=== PATIENT | female | born 1955 | race Caucasian/White ===

== ENCOUNTER → 2019-07-28 | Outpatient (CLI) | payer BC ==
--- NOTE | 2019-07-29 04:19 | BD ---
EXAMINATION TYPE: Axial Bone Density DATE OF EXAM: 07/28/2019 COMPARISON: 01/28/2013 CLINICAL HISTORY: 64-year-old female postmenopausal screening Height: 62.7 IN Weight: 136 LBS FRAX RISK QUESTIONS: Secondary Osteoporosis: 3. Menopause before 45: PARTIAL HYST AGE 43 RISK FACTORS HISTORY OF: Active: YES Diet low in dairy products/other sources of calcium: YES Postmenopausal woman: AGE 43 PARTIAL HYST MEDICATIONS: Additional Medications: ALEVE, SINUS MED, SUDAFED, TYLENOL PM EXAM MEASUREMENTS: Bone mineral densitometry was performed using the [employer] System. Bone mineral density as measured about the Lumbar spine is: ----- L1-L4(G/cm2): 0.957 T Score Values are as follows: ----- L2: -2.0 ----- L3: -1.9 ----- L4: -1.5 ----- L1-L4: -1.9 Bone mineral density has: Decreased -4.1% since study of: 01/28/2013 Bone mineral density about the R hip (g/cm2): 0.887 Bone mineral density about the L hip (g/cm2): 0.803 T Score values are as follows: -----R Neck: -1.1 -----L Neck: -1.7 -----R Total: -1.1 -----L Total: -1.3 Bone mineral density has: Decreased -3.8% since study of: 01/28/2013 IMPRESSION: Osteopenia (T Score between -2.5 and -1). There is slightly increased risk of fracture and the patient may be considered for treatment. Re-Screen 2-5 years. NOTE: T-SCORE=SD OF THE YOUNG ADULT MEAN.
--- NOTE | 2019-07-29 11:28 | MM ---
Reason for exam: screening (asymptomatic). Last mammogram was performed 5 years and 3 months ago. History: Patient is postmenopausal. Taking estrogen for 1 month beginning at age 50. Physical Findings: A clinical breast exam by your physician is recommended on an annual basis and results should be correlated with mammographic findings. MG Screening Mammo w CAD Bilateral CC and MLO view(s) were taken. Prior study comparison: April 14, 2014, bilateral MG screening mammo w CAD. January 28, 2013, bilateral digital screening mammo w/CAD. The breast tissue is heterogeneously dense. This may lower the sensitivity of mammography. Stable benign calcifications. There is no discrete abnormality. No significant changes when compared with prior studies. ASSESSMENT: Benign, BI-RAD 2 RECOMMENDATION: Routine screening mammogram of both breasts in 1 year.
== END | disposition home or self-care (01) ==
LOC: RADMAMWWP 14:34
PROVIDERS: ATTEND Obstetrics & Gynecology
DX: Z12.31 Encounter for screening mammogram for malignant neoplasm of breast (principal); M85.80 Other specified disorders of bone density and structure, unspecified site; Z78.0 Asymptomatic menopausal state
CPT/HCPCS: 77067; 77080

== ENCOUNTER → 2020-03-12 | Outpatient (CLI) | payer BC ==
--- NOTE | 2020-03-12 15:19 | MR ---
EXAMINATION TYPE: MR lumbar spine wo con DATE OF EXAM: 03/12/2020 COMPARISON: None HISTORY: 64-year-old female Low back pain radiating to R leg TECHNIQUE: Multiplanar, multisequence images of the lumbar spine were acquired. FINDINGS: Vertebral body heights are preserved. Hypertrophic facet arthropathy with grade 1 retrolisthesis at L2-L3. Moderate degenerative disc disease throughout. Mixed Modic endplate changes are present at L2-L3 and L5-S1. Desiccated, narrowed, and bulging discs are present throughout. Scattered ligament of flavum thickening. Fatty matrix and angioma within the L2 vertebral body. Mild heterogeneous marrow signal without suspi cious bone marrow placement. Suspect represent marrow hyperplasia. Conus medullaris is normal. At T12-L1, no spinal canal or foraminal stenosis. L1-L2, bulging disc with ligamentum flavum thickening. Minimal narrowing of the spinal canal without neural foraminal stenosis. At L2-L3, facet arthropathy with diffuse disc bulge and grade 1 retrolisthesis. There is mild overall narrowing of the spinal canal with mild bilateral neuroforaminal stenosis, left greater than right. At L3-L4, diffuse disc bulge with facet arthropathy and ligamentous thickening. There is ventral impr ession on the thecal sac without spinal canal stenosis. Mild right neuroforaminal stenosis. At L4-L5, diffuse disc bulge with facet arthropathy and ligamentum flavum thickening. No spinal canal stenosis. Mild bilateral neuroforaminal stenosis. At L5-S1, diffuse disc bulge with facet arthropathy. No spinal canal stenosis. Disc material may oneal ge the traversing left S1 nerve root and may contact the traversing right S1 nerve root. Mild bilater al neuroforaminal stenosis. T2 hyperintense lesions within the right liver lobe and also caudate lobe near the IVC measure at gelacio st 2.1 cm and 2.3 cm, respectively. IMPRESSION: 1. Moderate multilevel degenerative disc disease. Scattered facet arthropathy. Degenerative grade 1 r etrolisthesis of L2-L3. 2. Mild narrowing of the spinal canal at L1-L2 and L2-L3. No arianne canal compromise. 3. Disc material at L5-S1 may impinge the traversing left S1 nerve root and may contact the traversin g right S1 nerve root. 4. Variable mild bilateral neural foraminal stenosis as outlined above. 5. A couple T2 hyperintense hepatic lesions. Cysts or hemangiomas are favored. Recommend liver ultras ound to exclude suspicious solid masses.
== END | disposition home or self-care (01) ==
LOC: RADMRIMAIN 12:35
PROVIDERS: ATTEND Internal Medicine
DX: M47.816 Spondylosis without myelopathy or radiculopathy, lumbar region (principal); M43.16 Spondylolisthesis, lumbar region; M51.36 Other intervertebral disc degeneration, lumbar region; M48.061 Spinal stenosis, lumbar region without neurogenic claudication
CPT/HCPCS: 72148

== ENCOUNTER → 2020-04-08 | Outpatient (CLI) | payer BC ==
--- NOTE | 2020-04-08 09:31 | US ---
EXAMINATION TYPE: US liver DATE OF EXAM: 04/08/2020 COMPARISON: MRI lumbar spine 03/12/2020 CLINICAL HISTORY: R68.89 Abn MRI finding. EXAM MEASUREMENTS: Liver Length: 11.3 cm Gallbladder Wall: 0.2 cm CBD: 0.4 cm Right Kidney: 10.3 x 4.8 x 4.9 cm Pancreas: visualized portions wnl Liver: multiple echogenic lesions throughout both lobes, largest measures 2.7 x 1.9 x 2.7 cm in righ t lobe. There is one in the caudate lobe measures 1.9 x 2.9 x 2.3 cm. Gallbladder: No stones seen Evidence for sonographic Bob's sign: No CBD: wnl Right Kidney: No hydronephrosis or masses seen IMPRESSION: Ultrasound findings correspond to T2 bright lesions within the liver. Findings are indete rminate but could possibly represent hemangiomas which could be confirmed with dedicated liver CT wit h hemangioma protocol or liver MRI
== END | disposition home or self-care (01) ==
LOC: RADUSWWP 08:09
PROVIDERS: ATTEND Internal Medicine
DX: K76.9 Liver disease, unspecified (principal); R68.89 Other general symptoms and signs
CPT/HCPCS: 76705

== ENCOUNTER → 2020-04-16 | Outpatient (CLI) | payer BC ==
--- NOTE | 2020-04-16 20:24 | XR ---
EXAMINATION TYPE: XR knee complete LT DATE OF EXAM: 04/16/2020 CLINICAL HISTORY: Chronic left knee pain. Injury over 2 years ago. TECHNIQUE: Three views of the left knee are obtained. COMPARISON: None. FINDINGS: There is no acute fracture/dislocation evident in left knee. There is tricompartmental deg enerative spurring. There is air within the medial compartment meniscal space. No suprapatellar join t effusion. Normal osseous mineralization. The overlying soft tissue appears unremarkable. IMPRESSION: 1. There is no acute fracture or dislocation in the left knee. 2. Tricompartmental degenerative change. 3. Medial meniscus vacuum phenomenon may be sequela of degenerative change or trauma.
== END | disposition home or self-care (01) ==
LOC: RADXRMAIN 09:15
PROVIDERS: ATTEND Internal Medicine
DX: M17.12 Unilateral primary osteoarthritis, left knee (principal); M25.462 Effusion, left knee

== ENCOUNTER → 2020-05-14 | Outpatient (CLI) | payer BC ==
--- NOTE | 2020-05-15 03:48 | MR ---
EXAMINATION TYPE: MR liver wo/w con DATE OF EXAM: 05/14/2020 COMPARISON: Liver ultrasound 04/08/2020 HISTORY: Abnormal findings on US 04-08-20 CONTRAST: Standard multiplanar, multisequence MRI departmental protocol utilizing 6 mL intravenous Gadavist barbara olinium contrast. There is 12 mm area of decreased signal on T1 images in the inferior lateral right lobe of the liver. There is 2.6 cm rounded area of decreased signal on the T1 images in the posterior right lobe of the liver. There is 1 cm focus of decreased signal in the anterior right lobe of the liver. There is a 2 x 1 cm focus of decreased signal in the superior right lobe of the liver. All of these lesions show delayed enhancement except for the 1 cm lesion near the karen hepatis. This is consistent with multip le hemangiomas. The 1 cm lesion has normal enhancement and features of a simple cyst. The bile ducts are not dilated. Common bile duct measures 4.5 mm. Spleen is intact. There is no evide nce of pancreatic mass. Gallbladder appears normal. Pancreatic duct appears normal. Gallbladder appea rs normal. There is no evidence of ascites. There is no evidence of pleural effusion. There is no retroperitonea l adenopathy. IMPRESSION: Multiple lesions in the liver as described above consistent with ordinary hemangiomas. Small simple h epatic cyst.
== END | disposition home or self-care (01) ==
LOC: RADMRIMAIN 16:47
PROVIDERS: ATTEND Internal Medicine
DX: K76.89 Other specified diseases of liver (principal)
CPT/HCPCS: 74183; A9585

== ENCOUNTER → 2020-05-18 | Outpatient (CLI) | payer BC ==
--- NOTE | 2020-05-18 08:19 | MR ---
EXAMINATION TYPE: MR knee LT wo con DATE OF EXAM: 05/18/2020 COMPARISON: None HISTORY: Left knee pain TECHNIQUE: Multiplanar, multisequence images of the knee is performed without IV contrast. FINDINGS: MEDIAL MENISCUS: Oblique tear noted the posterior horn medial meniscus. LATERAL MENISCUS: Anterior and posterior horns are intact without tear. CRUCIATE LIGAMENTS: The anterior and posterior cruciate ligaments are intact and unremarkable. COLLATERAL LIGAMENTS: The medial collateral ligament and lateral collateral ligament complex are inta ct and unremarkable. EXTENSOR MECHANISM: Visualized quadriceps and patellar tendons are intact. EFFUSION: No significant suprapatellar joint effusion. POPLITEAL CYST: No popliteal/metzger cyst. TRICOMPARTMENT SPACES: Moderate degenerative narrowing medial tibiofemoral joint space as well as the patellofemoral joint space with early changes of chondromalacia patella. Subchondral cyst formation. CARTILAGE: Thinning medial tibial cartilage. BONE MARROW SIGNAL: No focal abnormal marrow signal is appreciated. OTHER: No additional significant abnormality is appreciated. IMPRESSION: 1. Oblique tear posterior horn medial meniscus. 2. Degenerative changes of osteoarthritis.
== END | disposition home or self-care (01) ==
LOC: RADMRIMAIN 07:24
PROVIDERS: ATTEND Internal Medicine
DX: M17.12 Unilateral primary osteoarthritis, left knee (principal); S83.242A Other tear of medial meniscus, current injury, left knee, initial encounter

== ENCOUNTER → 2021-06-10 | Outpatient (CLI) | payer MEDICARE ==
--- NOTE | 2021-06-13 11:45 | MM ---
Reason for exam: screening (asymptomatic). Last mammogram was performed 1 year and 10 months ago. History: Patient is postmenopausal. Took hormonal contraceptives for 13 years beginning at age 20. Taking estrogen for 1 month beginning at age 50. Physical Findings: A clinical breast exam by your physician is recommended on an annual basis and results should be correlated with mammographic findings. MG 3D Screening Mammo W/Cad Bilateral CC and MLO view(s) were taken. Prior study comparison: July 28, 2019, bilateral MG screening mammo w CAD. April 14, 2014, bilateral MG screening mammo w CAD. The breast tissue is heterogeneously dense. This may lower the sensitivity of mammography. There are benign appearing round calcifications bilaterally. There is no discrete abnormality. ASSESSMENT: Benign, BI-RAD 2 RECOMMENDATION: Routine screening mammogram of both breasts in 1 year.
== END | disposition home or self-care (01) ==
LOC: RADMAMWWP 07:29
PROVIDERS: ATTEND Obstetrics & Gynecology
DX: Z12.31 Encounter for screening mammogram for malignant neoplasm of breast (principal); Z78.0 Asymptomatic menopausal state
CPT/HCPCS: 77063; 77067

== ENCOUNTER → 2021-06-16 | Outpatient (CLI) | payer MEDICARE ==
--- NOTE | 2021-06-16 15:27 | BD ---
EXAMINATION TYPE: Axial Bone Density DATE OF EXAM: 06/16/2021 COMPARISON: 2019 CLINICAL HISTORY: Post menopausal screening Height: 63 Weight: 120.0 FRAX RISK QUESTIONS: Alcohol (3 or more units per day): no Family History (Parent hip fracture): no Glucocorticoids (More than 3mos): no (Ex: prednisone, prednisolone, methylprednisolone, dexamethasone, and hydrocortisone). History of Fracture in Adulthood: yes Secondary Osteoporosis: 1. Type 1 Diabetes: no 2. Hyperthyroidism: no 3. Menopause before 45: yes 4. Malnutrition: no 5. Chronic liver disease: no Rheumatoid Arthritis: no Current Tobacco Use: no RISK FACTORS HISTORY OF: Surgery to Spine/Hip(right/left)/Wrist (right/left): no Family History of Osteoporosis: yes Active: yes Diet low in dairy products/other sources of calcium: no Postmenopausal woman: yes Lost more than 2 inches in height since high school: no MEDICATIONS: Prednisone or other steroids: yes How Lon weeks ago for poison jonna Additional History: EXAM MEASUREMENTS: Bone mineral densitometry was performed using the [employer] System. Bone mineral density as measured about the Lumbar spine is: ----- L1-L4(G/cm2): 0.936 T Score Values are as follows: ----- L2: -1.8 ----- L3: -2.1 ----- L4: -1.9 ----- L1-L4: -2.0 Bone mineral density has: decreased -1.7 % since study of: 07.28.2019 Bone mineral density about the R hip (g/cm2): 0.831 Bone mineral density about the L hip (g/cm2): 0.774 T Score values are as follows: -----R Neck: -1.5 -----L Neck: -1.9 -----R Total: -1.2 -----L Total: -1.6 Bone mineral density has: decreased -3.1 % since study of: 07.28.2019 IMPRESSION: Osteopenia (T Score between -2.5 and -1). There is slightly increased risk of fracture and the patient may be considered for treatment. Re-Screen 2-5 years. NOTE: T-SCORE=SD OF THE YOUNG ADULT MEAN.
== END | disposition home or self-care (01) ==
LOC: RADBDWWP 14:14
PROVIDERS: ATTEND Obstetrics & Gynecology
DX: Z12.31 Encounter for screening mammogram for malignant neoplasm of breast (principal); M85.80 Other specified disorders of bone density and structure, unspecified site
CPT/HCPCS: 77080

== ENCOUNTER → 2022-04-25 | Outpatient (CLI) | payer MEDICARE ==
--- NOTE | 2022-04-25 16:22 | FL ---
EXAMINATION TYPE: FL arthrogram shoulder RT DATE OF EXAM: 04/25/2022 2:12 PM CLINICAL INDICATION:Female, 66 years old with history of M25.511 [id number]; COMPARISON: INDICATION: None TECHNIQUE/PROCEDURE: This study was performed by Dr. Carter . After the procedure was explained and i nformed consent was obtained from the patient, the patient was prepped and draped in the usual steril e fashion. 1% Lidocaine was used as local anesthetic using a 25 gauge needle. A 25 gauge needle was t hen advanced into the glenohumeral joint using fluoroscopic guidance. Multiple attempts were made to access the right shoulder joint. Ultimately the patient decided to end the examination. The patient tolerated procedure well. The patient was then sent to the MR unit for an MRI exam. Fluoroscopic time 34 seconds Fluoroscopic images: 1 Radiographs taken: 0 FINDINGS: No contrast seen filling the right shoulder joint effusion after multiple attempts at repos itioning. IMPRESSION: Unsuccessful right shoulder arthrogram secondary to patient early termination.
== END | disposition home or self-care (01) ==
LOC: RADFLMAIN 12:38
PROVIDERS: ATTEND Orthopaedic Surgery
DX: T84.84XA Pain due to internal orthopedic prosthetic devices, implants and grafts, initial encounter (principal); M25.511 Pain in right shoulder
CPT/HCPCS: 23350; 73040; A9585; Q9967

== ENCOUNTER → 2022-08-29 | Outpatient (CLI) | payer MEDICARE ==
--- NOTE | 2022-08-29 11:06 | CT ---
EXAMINATION TYPE: CT pelvis wo con DATE OF EXAM: 08/29/2022 COMPARISON: None HISTORY: left hip pain CT DLP: 537.6 mGycm Automated exposure control for dose reduction was used. Unenhanced CT of the pelvis was performed wit h bone and soft tissue window settings submitted. FINDINGS: There is fracture noted to involve the left ischium and left inferior pubic ramus. There is mild call us formation indicating relatively recent but nonacute fracture. No additional fractures seen within the [id number]. Mild degenerative narrowing of the hip joints. Degenerative changes lower lumbar s pine. No evidence for pelvic mass. IMPRESSION: There is fracture noted to involve the left ischium and left inferior pubic ramus. There is mild call us formation indicating relatively recent but nonacute fracture.
== END | disposition home or self-care (01) ==
LOC: RADCTMAIN 09:28
PROVIDERS: ATTEND Orthopaedic Surgery
DX: S32.592D Other specified fracture of left pubis, subsequent encounter for fracture with routine healing (principal)
CPT/HCPCS: 72192

== ENCOUNTER 2024-06-23 09:03 | Observation (INO) | payer MEDICARE ==
--- NOTE | 2024-06-23 09:40 | ED ---
General Adult HPI - General Chief complaint: Extremity Problem,Nontraumatic Stated complaint: L Knee Pain Time Seen by Provider: 06/23/24 09:12 Source: patient, RN notes reviewed, old records reviewed Mode of arrival: ambulatory Limitations: no limitations - History of Present Illness Initial comments: 69-year-old female presenting for evaluation of chest pain. Patient has had central chest discomfort for the past 3 days. She had contacted her orthopedic surgeon who suggest that she present to the emergency department for evaluation. She has postop total left knee which she states is healing quite well. She is walking without a cane. She denies significant swelling. No fever. She states she does have a mild upper respiratory infection developing without significant cough. No fever. - Related Data Home Medications Medication Instructions Recorded Confirmed Acetaminophen [Tylenol] 975 mg PO Q4H PRN 06/23/24 06/23/24 Aspirin EC [Ecotrin Low Dose] 81 mg PO BID 06/23/24 06/23/24 Calcium Carbonate [Tums] 1,000 mg PO DAILY 06/23/24 06/23/24 Cetirizine HCl [Zyrtec] 10 mg PO DAILY 06/23/24 06/23/24 Ibuprofen [Motrin] 800 mg PO Q8H PRN 06/23/24 06/23/24 Zinc Gluconate [Zinc] 50 mg PO DAILY 06/23/24 06/23/24 diphenhydrAMINE HCL [Benadryl] 50 mg PO HS 06/23/24 06/23/24 traMADol HCL 50 mg PO BID PRN 06/23/24 06/23/24 Allergies Allergy/AdvReac Type Severity Reaction Status Date / Time Penicillins Allergy Rash/Hives Verified 06/23/24 11:06 Review of Systems ROS Statement: Those systems with pertinent positive or pertinent negative responses have been documented in the HPI. ROS Other: All systems not noted in ROS Statement are negative. Past Medical History Past Medical History: No Reported History History of Any Multi-Drug Resistant Organisms: None Reported Past Surgical History: Joint Replacement, Orthopedic Surgery Past Psychological History: No Psychological Hx Reported Smoking Status: Never smoker Past Alcohol Use History: None Reported Past Drug Use History: None Reported General Exam Limitations: no limitations General appearance: alert, in no apparent distress Head exam: Present: atraumatic, normocephalic Eye exam: Present: normal appearance, PERRL ENT exam: Present: normal exam Respiratory exam: Present: normal lung sounds bilaterally. Absent: respiratory distress, wheezes Cardiovascular Exam: Present: regular rate, normal rhythm GI/Abdominal exam: Present: soft. Absent: distended, tenderness Extremities exam: Present: other (Knee appears well-healed). Absent: calf tenderness Neurological exam: Present: alert, oriented X3, CN II-XII intact. 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 sent in by a medical professional or institution (, PA, DIESEL SERVICE JOURNEYMAN, urgent care, hospital, or detention...) When possible be specific @ -No Did you speak to anyone other than the patient for history (EMS, parent, family, police, friend...)? What history was obtained from this source @ -No Did you review nursing and triage notes (agree or disagree)? Why? @ -I reviewed and agree with nursing and triage notes Were old charts reviewed (outside hosp., previous admission, EMS record, old EKG, old radiological studies, urgent care reports/EKG's, detention records)? Report findings @ -No old charts were reviewed Differential Chest Pain: Stable Angina, Unstable Angina, STEMI, NSTEMI Aortic Dissection, Pneumothorax, Musculoskeletal, Esophageal Spasm GERD, Cholecystitis, Pancreatitis, Zoster, this is not meant to be an all-inclusive list. EKG interpreted by me (3pts min.). @Sinus rhythm rate of 71, AR interval 165, QRS duration 86, QTc [address] segment elevation. X-rays interpreted by me (1pt min.). @ -None done CT interpreted by me (1pt min.). @ -[CT angio of the chest is positive for pulmonary embolism U/S interpreted by me (1pt. min.). @ -Ultrasound of right upper quadrant showing chronic abnormality without acute process What testing was considered but not performed or refused? (CT, X-rays, U/S, labs)? Why? @ -[None What meds were considered but not given or refused? Why? @ -None Did you discuss the management of the patient with other professionals (professionals i.e. , PA, DIESEL SERVICE JOURNEYMAN, lab, RT, psych nurse, nursing home social worker, market analysis director, teacher, licensed loan officer, shoe parts caser)? Give summary @ -No Was smoking cessation discussed for >3mins.? @ -No Was critical care preformed (if so, how long)? @ -[yes, 35 min Were there social determinants of health that impacted care today? How? (Homelessness, low income, unemployed, alcoholism, drug addiction, transportation, low edu. Level, literacy, decrease access to med. care, [facility], rehab)? @ -No Was there de-escalation of care discussed even if they declined (Discuss DNR or withdrawal of care, Hospice)? DNR status @ -No What co-morbidities impacted this encounter? (DM, HTN, Smoking, COPD, CAD, Cancer, CVA, ARF, Chemo, Hep., AIDS, mental health diagnosis, sleep apnea, morbid obesity)? @ -Recent orthopedic surgery Was patient admitted / discharged? Hospital course, mention meds given and route, prescriptions, significant lab abnormalities, going to OR and other pertinent info. @ -69-year-old female with recent orthopedic surgery presenting with chest pain. Concern for pulmonary embolism. Workup initiated including CBC, CMP and CT angiography. CT angiography is positive for pulmonary embolism. Patient started on heparin. She is admitted to internal medicine. Case discussed with who will admit Undiagnosed new problem with uncertain prognosis? @ -No Drug Therapy requiring intensive monitoring for toxicity (Heparin, Nitro, Insulin, Cardizem)? @ -No Were any procedures done? @ -No Diagnosis/symptom? @ -[Pulmonary embolism Acute, or Chronic, or Acute on Chronic? @ -Acute Uncomplicated (without systemic symptoms) or Complicated (systemic symptoms)? @ -[default Side effects of treatment? @ -No Exacerbation, Progression, or Severe Exacerbation? @ -No Poses a threat to life or bodily function? How? (Chest pain, USA, DC, pneumonia, PE, COPD, DKA, ARF, appy, cholecystitis, CVA, Diverticulitis, Homicidal, Suicidal, threat to staff... and all critical care pts) @ -[Yes, pulmonary embolism - Lab Data Result diagrams: 06/23/24 09:37 06/23/24 09:37 Lab Results 06/23/24 06/23/24 06/23/24 Range/Units 09:37 09:37 09:37 WBC 5.4 (3.8-10.6) k/uL RBC 4.19 (3.80-5.40) m/uL Hgb 12.7 (11.4-16.0) gm/dL Hct 38.5 (34.0-46.0) % MCV 91.8 (80.0-100.0) fL MCH 30.4 (25.0-35.0) pg MCHC 33.1 (31.0-37.0) g/dL RDW 13.9 (11.5-15.5) % Plt Count 537 H (150-450) k/uL MPV 7.5 Neutrophils % 77 % Lymphocytes % 10 % Monocytes % 4 % Eosinophils % 6 % Basophils % 1 % Neutrophils # 4.2 (1.3-7.7) k/uL Lymphocytes # 0.5 L (1.0-4.8) k/uL Monocytes # 0.2 (0-1.0) k/uL Eosinophils # 0.3 (0-0.7) k/uL Basophils # 0.0 (0-0.2) k/uL PT 10.3 (10.0-12.5) sec INR 0.9 (<1.2) APTT 24.6 (22.0-30.0) sec Sodium 138 (137-145) mmol/L Potassium 3.7 (3.5-5.1) mmol/L Chloride 104 (98-107) mmol/L Carbon Dioxide 25 (22-30) mmol/L Anion Gap 9 mmol/L BUN 19 H (7-17) mg/dL Creatinine 0.55 (0.52-1.04) mg/dL Est GFR (CKD-EPI)AfAm >90 (>60 ml/min/1.73 sqM) Est GFR (CKD-EPI)NonAf >90 (>60 ml/min/1.73 sqM) Glucose 103 H (74-99) mg/dL Calcium 9.9 (8.4-10.2) mg/dL Magnesium 1.7 (1.6-2.3) mg/dL Total Bilirubin 0.4 (0.2-1.3) mg/dL AST 526 H (14-36) U/L ALT 403 H (4-34) U/L Alkaline Phosphatase 212 H (38-126) U/L Troponin I (0.000-0.034) ng/mL Total Protein 7.3 (6.3-8.2) g/dL Albumin 4.1 (3.5-5.0) g/dL Lipase 74 (23-300) U/L Influenza Type A (PCR) (Not Detectd) Influenza Type B (PCR) (Not Detectd) RSV (PCR) (Not Detectd) SARS-CoV-2 (PCR) (Not Detectd) 06/23/24 06/23/24 Range/Units 09:37 10:06 WBC (3.8-10.6) k/uL RBC (3.80-5.40) m/uL Hgb (11.4-16.0) gm/dL Hct (34.0-46.0) % MCV (80.0-100.0) fL MCH (25.0-35.0) pg MCHC (31.0-37.0) g/dL RDW (11.5-15.5) % Plt Count (150-450) k/uL MPV Neutrophils % % Lymphocytes % % Monocytes % % Eosinophils % % Basophils % % Neutrophils # (1.3-7.7) k/uL Lymphocytes # (1.0-4.8) k/uL Monocytes # (0-1.0) k/uL Eosinophils # (0-0.7) k/uL Basophils # (0-0.2) k/uL PT (10.0-12.5) sec INR (<1.2) APTT (22.0-30.0) sec Sodium (137-145) mmol/L Potassium (3.5-5.1) mmol/L Chloride (98-107) mmol/L Carbon Dioxide (22-30) mmol/L Anion Gap mmol/L BUN (7-17) mg/dL Creatinine (0.52-1.04) mg/dL Est GFR (CKD-EPI)AfAm (>60 ml/min/1.73 sqM) Est GFR (CKD-EPI)NonAf (>60 ml/min/1.73 sqM) Glucose (74-99) mg/dL Calcium (8.4-10.2) mg/dL Magnesium (1.6-2.3) mg/dL Total Bilirubin (0.2-1.3) mg/dL AST (14-36) U/L ALT (4-34) U/L Alkaline Phosphatase (38-126) U/L Troponin I <0.012 (0.000-0.034) ng/mL Total Protein (6.3-8.2) g/dL Albumin (3.5-5.0) g/dL Lipase (23-300) U/L Influenza Type A (PCR) Not Detected (Not Detectd) Influenza Type B (PCR) Not Detected (Not Detectd) RSV (PCR) Not Detected (Not Detectd) SARS-CoV-2 (PCR) Not Detected (Not Detectd) Critical Care Time Critical Care Time: Yes Total Critical Care Time: 35 Disposition Clinical Impression: Pulmonary embolism Disposition: ADMITTED IP TO THIS HOSP Condition: Stable Is patient prescribed a controlled substance at d/c from ED?: No Referrals: Valentina Joshi MD [Primary Care Provider] - 1-2 days Time of Disposition: 11:38
[2024-06-23 10:06] LABS: INR 0.9 (<1.2); Partial Thromboplastin Time 24.6 sec (22.0-30.0); Prothrombin Time 10.3 sec (10.0-12.5)
[2024-06-23 10:18] LABS: ALT 403 U/L (4-34); AST 526 U/L (14-36); African American GFR (CKD) >90 (>60 ml/min/1.73 sqM); Albumin 4.1 g/dL (3.5-5.0); Alkaline Phosphatase 212 U/L (38-126); Anion Gap 9 mmol/L; Basophils % (A) 1 %; Blood Urea Nitrogen 19 mg/dL (7-17); Calcium 9.9 mg/dL (8.4-10.2); Carbon Dioxide 25 mmol/L (22-30); Chloride 104 mmol/L (98-107); Eosinophils # (A) 0.3 k/uL (0-0.7); Eosinophils % (A) 6 %; Glucose 103 mg/dL (74-99); HCT 38.5 % (34.0-46.0); HGB 12.7 gm/dL (11.4-16.0); Lipase 74 U/L (23-300); Lymphocytes # (A) 0.5 k/uL (1.0-4.8); Lymphocytes % (A) 10 %; MCH 30.4 pg (25.0-35.0); MCHC 33.1 g/dL (31.0-37.0); MCV 91.8 fL (80.0-100.0); Magnesium 1.7 mg/dL (1.6-2.3); Mean Platelet Volume 7.5; Monocytes # (A) 0.2 k/uL (0-1.0); Monocytes % (A) 4 %; Neutrophils # (A) 4.2 k/uL (1.3-7.7); Neutrophils % (A) 77 %; Non-African American GFR(CKD) >90 (>60 ml/min/1.73 sqM); Platelet Count 537 k/uL (150-450); Potassium 3.7 mmol/L (3.5-5.1); RBC 4.19 m/uL (3.80-5.40); RDW 13.9 % (11.5-15.5); Sodium 138 mmol/L (137-145); Total Bilirubin 0.4 mg/dL (0.2-1.3); Total Protein 7.3 g/dL (6.3-8.2); WBC 5.4 k/uL (3.8-10.6)
[2024-06-23] MEDS ORDERED: HEPARIN SODIUM 1,000 UN/ML (10ML VL) IV PRN (10:50)
--- NOTE | 2024-06-23 10:50 | CT ---
EXAMINATION TYPE: CT angio chest CT DLP: 228.7 mGycm, Automated exposure control for dose reduction was used. DATE OF EXAM: 06/23/2024 10:32 AM COMPARISON: No direct comparisons. CLINICAL INDICATION:Female, 69 years old with history of CP/recent knee replacement; R/O pe TECHNIQUE/CONTRAST: CTA scan of the thorax is performed with IV Contrast, patient injected with 68 mL of Isovue 370, pulm onary embolism protocol. MIP images are created and reviewed. FINDINGS: Pulmonary Artery: Is a filling defect identified within the left midlung anterior subsegmental pulmon isabel artery (series 402, image 78). The pulmonary artery is of normal size. No reflux of contrast into the IVC. Lungs/Pleura: No evidence of focal consolidation, pleural effusion or pneumothorax. Multiple biapical pleural-parenchymal scarring. Airway: Large airways are patent. Heart: Heart is within normal limits for size.. Trace pericardial effusion. No flattening of the ante rior ventricular septum. Vasculature: No evidence of aortic aneurysm. Mediastinum: No evidence of adenopathy. Musculoskeletal: No acute osseous abnormalities. Right humeral head surgical anchors. L2 benign verte bral hemangioma. Soft Tissues: Unremarkable. Lower neck: No significant findings. Upper Abdomen: Hepatic dome near IVC 1.2 cm cyst. IMPRESSION: Left midlung subsegmental pulmonary embolism. No evidence for right heart strain. Findings called and discussed with Dr. De La Cruz at 10:46 AM on 06/23/2024. [facility], , 06/23/2024 10:48 AM
[2024-06-23] MEDS: HEPARIN SODIUM 1,000 UN/ML (10ML VL) IV ONE (11:11)
[2024-06-23] MEDS: HEPARIN SOD,PORK IN 0.45% NACL 25,000 UNIT in 0.45% NACL 1 250ML.BAG IV SCH (11:12)
--- NOTE | 2024-06-23 11:26 | P.HPIM ---
History of Present Illness This is a pleasant 69 years old female with past medical history of multiple medical problems Presents today with chest pain or dyspnea. Patient states that she has left knee surgery for replacement of the joint about 3 weeks ago, she was doing well and participating in therapy and walking fine 2 days ago she was started feeling not good, she started then developing what she describes lower central chest pain, nonradiating getting gradually worse especially yesterday Sunday she could not sleep, she walked her asking t o come to emergency room. Associated with little dyspnea but no coughing No nausea vomiting or diarrhea. No urinary complaints. No headache dizziness weakness numbness Patient denies smoking alcohol or illicit drugs. She is afebrile and vital stable CBC and BMP are unremarkable Liver enzymes moderately elevated. Bilirubin is normal INR and troponin are negative, lipase is normal CTA of the chest showing positive pulmonary embolism in the left midlung Patient was started on heparin drip Review of Systems Review of systems CONSTITUTIONAL: No fever, no malaise, no fatigue. HEENT: No recent visual problems or hearing problems. Denied any sore throat. CARDIOVASCULAR: No orthopnea, PND, no palpitations, no syncope. PULMONARY:no cough, no hemoptysis. GASTROINTESTINAL: No diarrhea, no nausea, no vomiting, no abdominal pain. Normoactive bowel sounds. NEUROLOGICAL: No headaches, no weakness, no numbness. HEMATOLOGICAL: Denies any bleeding or petechiae. GENITOURINARY: Denies any burning micturition, frequency, or urgency. MUSCULOSKELETAL/RHEUMATOLOGICAL: Denies any joint pain, swelling, or any muscle pain. ENDOCRINE: Denies any polyuria or polydipsia. Past Medical History Past Medical History: No Reported History History of Any Multi-Drug Resistant Organisms: None Reported Past Surgical History: Joint Replacement, Orthopedic Surgery Past Psychological History: No Psychological Hx Reported Smoking Status: Never smoker Past Alcohol Use History: None Reported Past Drug Use History: None Reported Medications and Allergies Home Medications Medication Instructions Recorded Confirmed Type Acetaminophen [Tylenol] 975 mg PO Q4H PRN 06/23/24 06/23/24 History Aspirin EC [Ecotrin Low Dose] 81 mg PO BID 06/23/24 06/23/24 History Calcium Carbonate [Tums] 1,000 mg PO DAILY 06/23/24 06/23/24 History Cetirizine HCl [Zyrtec] 10 mg PO DAILY 06/23/24 06/23/24 History Ibuprofen [Motrin] 800 mg PO Q8H PRN 06/23/24 06/23/24 History Zinc Gluconate [Zinc] 50 mg PO DAILY 06/23/24 06/23/24 History diphenhydrAMINE HCL [Benadryl] 50 mg PO HS 06/23/24 06/23/24 History traMADol HCL 50 mg PO BID PRN 06/23/24 06/23/24 History Allergies Allergy/AdvReac Type Severity Reaction Status Date / Time Penicillins Allergy Rash/Hives Verified 06/23/24 11:06 Physical Exam Vitals: Vital Signs Temp Pulse Pulse Resp BP Pulse Ox 06/23/24 10:43 77 16 151/80 96 06/23/24 09:25 96 06/23/24 09:22 85 18 153/86 97 06/23/24 09:04 98.4 F 9 L 20 123/60 97 Intake and Output 06/22/24 06/23/24 06/23/24 22:59 06:59 14:59 Other: Weight 61.235 kg GENERAL: The patient is alert and oriented x3, not in any acute distress. Well developed, well nourished. HEENT: Pupils are round and equally reacting to light. EOMI. No scleral icterus. No conjunctival pallor. Normocephalic, atraumatic. No pharyngeal erythema. No thyromegaly. CARDIOVASCULAR: S1 and S2 present. No murmurs, rubs, or gallops. PULMONARY: Chest is clear to auscultation, no wheezing , no crackles. ABDOMEN: Soft, nontender, nondistended, normoactive bowel sounds. No palpable organomegaly. MUSCULOSKELETAL: No joint swelling or deformity. -EXTREMITIES: No cyanosis, clubbing, or pedal edema. Left knee wound looks good and healing NEUROLOGICAL: Gross neurological examination did not reveal any focal deficits. SKIN: No rashes. no petechiae. Results CBC & Chem 7: 06/23/24 09:37 06/23/24 09:37 Labs: Abnormal Lab Results - Last 24 Hours (Table) 06/23/24 06/23/24 Range/Units 09:37 09:37 Plt Count 537 H (150-450) k/uL Lymphocytes # 0.5 L (1.0-4.8) k/uL BUN 19 H (7-17) mg/dL Glucose 103 H (74-99) mg/dL AST 526 H (14-36) U/L ALT 403 H (4-34) U/L Alkaline Phosphatase 212 H (38-126) U/L Assessment and Plan Assessment: Acute provoked left pulmonary embolism following her knee surgery Transaminitis, rule out hepatobiliary disease Osteoarthritis status post left total knee replacement procedure 3 weeks prior to hospitalization Plan: Check echocardiogram Check liver ultrasound Check lower extremity ultrasound Continue with heparin drip Labs and medication were reviewed.. Continue same treatment. Continue with symptomatic treatment. Resume home medication. Monitor labs and vitals. DVT and GI prophylaxis. Further recommendations as per clinical course of the patient DVT prophylaxis: heparin GI Prophylaxis: Pepcid PT/OT: Pending Prognosis is guarded
--- NOTE | 2024-06-23 11:29 | US ---
EXAMINATION TYPE: US gallbladder DATE OF EXAM: 06/23/2024 COMPARISON: 04/08/20 CLINICAL INDICATION: Female, 69 years old with history of epigastric pain; Pt states no pain. Elevate d liver enzymes TECHNIQUE: Grayscale and color Doppler imaging of the right upper quadrant was performed. FINDINGS: EXAM MEASUREMENTS: Liver Length: 13.5 cm Gallbladder Wall: 0.17 cm CBD: 0.39 cm Right Kidney: 10.9 x 5.6 x 4.8 cm ACID SUPERVISOR NOTES: Pancreas: parts seen appear wnl Liver: Multiple hyperechoic areas seen in liver as seen on US in 2019. Largest in rt lobe is measuri ng 2.4 x 2.5 x 2.3cm worsened pattern to the liver can be associated with underlying hepatocellular disease. Gallbladder: wnl Evidence for sonographic Bob's sign: No CBD: wnl Right Kidney: wnl IMPRESSION: 1. Multifocal hyperechoic hepatic lesions largest measuring 2.5 cm similar to prior ultrasound most l ikely in the basis of multiple hepatic hemangioma. 2. Coarse in pattern to the liver is nonspecific and can be associated with underlying hepatocellular disease or hepatic steatosis. [facility], , 06/23/2024 11:26 AM
[2024-06-23] MEDS ORDERED: NALOXONE 0.4 MG/ML 1 ML VIAL IV PRN (11:32)
--- NOTE | 2024-06-23 12:43 | US ---
EXAMINATION TYPE: US venous doppler duplex LE BI DATE OF EXAM: 06/23/2024 12:29 PM COMPARISON: NONE CLINICAL INDICATION: Female, 69 years old with history of leg swelling; Swelling TECHNIQUE: The lower extremity deep venous system is examined utilizing real time linear array sonog sammy with graded compression, color doppler sonography, and spectral doppler. SIDE PERFORMED: Bilateral FINDINGS: VESSELS IMAGED: Common Femoral Vein Deep Femoral Vein Greater Saphenous Vein * Femoral Vein Popliteal Vein Small Saphenous Vein * Proximal Calf Veins (* superficial vessels) Right Leg: Negative for DVT Left Leg: Negative for DVT Grayscale, color doppler, spectral doppler imaging performed of the deep veins of the lower extremiti es. IMPRESSION: 1. No ultrasound evidence for deep venous thrombosis of either lower extremity. [facility], , 06/23/2024 12:41 PM
--- NOTE | 2024-06-23 15:02 | P.CNPUL ---
History of Present Illness Consult date: 06/23/24 Reason for consult: pulmonary embolism History of present illness: This is a 69-year-old female patient who is coming in for left-sided chest wall pain. The patient has undergone a recent left knee replacement and this was done approximately 3 weeks ago. She was given aspirin for DVT prophylaxis postop. The patient has chest wall pain on the left. No hemoptysis. No pleurisy. No shortness of breath. No swelling lower extremities. Surgical wound site is dry clean and intact. No previous history of DVT or pulmonary embolism. In the emergency, CT of the chest showed subsegmental pulm embolism in the left midlung area. CBC and electrolytes were essentially within normal limits. The patient had Doppler of the lower extremity was negative and based on that the patient was done on IV heparin. No evidence of any RV strain pattern on the CAT scan findings. LFTs were abnormal. Does not take aspirin. Does not take any other hepatotoxic agents and the patient does not drink alcohol. Ultrasound the gallbladder was done and it showed multiple hyperechoic areas in the liver comparable to a previous ultrasound (08/29/2020 and there is worsening creatinine and liver associate with underlying hepatocellular disease. Gallbladder is within normal limits., Bile duct is not elevated. Her ALT is 403, AST is 526, troponins are negative, bilirubin is not elevated, alkaline phosphatase 212. The viral screen has been negative Review of Systems Constitutional: Reports as per HPI Eyes: denies as per HPI, denies blurred vision, denies bulging eye, denies decreased vision, denies diplopia, denies discharge, denies dry eye, denies irritation, denies itching, denies pain, denies photophobia, denies loss of peripheral vision, denies loss of vision, denies tunnel vision/blind spots Ears: deny: decreased hearing, ear discharge, earache, tinnitus Ears, nose, mouth and throat: Reports as per HPI Breasts: absent: as per HPI, change in shape, gynecomastia, masses, nipple discharge, pain, skin changes, swelling Cardiovascular: Reports as per HPI, Reports chest pain Respiratory: Reports as per HPI Gastrointestinal: Reports as per HPI Genitourinary: Reports as per HPI Menstruation: Reports as per HPI Musculoskeletal: Reports as per HPI Musculoskeletal: absent: ankle pain, ankle stiffness, ankle swelling, as per HPI, elbow pain, elbow stiffness, elbow swelling, foot pain, foot stiffness, foot swelling, hand pain, hand stiffness, hand swelling, hip pain, hip stiffness, hip swelling, knee pain, knee stiffness, knee swelling, shoulder pain, shoulder stiffness, shoulder swelling, wrist pain, wrist stiffness, wrist swelling Integumentary: Reports as per HPI Neurological: Reports as per HPI Psychiatric: Reports as per HPI Endocrine: Reports as per HPI Hematologic/Lymphatic: Reports as per HPI Allergic/Immunologic: Reports as per HPI Past Medical History Past Medical History: No Reported History History of Any Multi-Drug Resistant Organisms: None Reported Past Surgical History: Joint Replacement, Orthopedic Surgery Past Psychological History: No Psychological Hx Reported Smoking Status: Never smoker Past Alcohol Use History: None Reported Past Drug Use History: None Reported Medications and Allergies Home Medications Medication Instructions Recorded Confirmed Type Acetaminophen [Tylenol] 975 mg PO Q4H PRN 06/23/24 06/23/24 History Aspirin EC [Ecotrin Low Dose] 81 mg PO BID 06/23/24 06/23/24 History Calcium Carbonate [Tums] 1,000 mg PO DAILY 06/23/24 06/23/24 History Cetirizine HCl [Zyrtec] 10 mg PO DAILY 06/23/24 06/23/24 History Ibuprofen [Motrin] 800 mg PO Q8H PRN 06/23/24 06/23/24 History Zinc Gluconate [Zinc] 50 mg PO DAILY 06/23/24 06/23/24 History diphenhydrAMINE HCL [Benadryl] 50 mg PO HS 06/23/24 06/23/24 History traMADol HCL 50 mg PO BID PRN 06/23/24 06/23/24 History Allergies Allergy/AdvReac Type Severity Reaction Status Date / Time Penicillins Allergy Rash/Hives Verified 06/23/24 11:06 Physical Exam Vitals: Vital Signs Temp Pulse Pulse Resp BP Pulse Ox 06/23/24 14:13 70 16 137/81 96 06/23/24 13:11 81 16 126/98 98 06/23/24 10:43 77 16 151/80 96 06/23/24 09:25 96 06/23/24 09:22 85 18 153/86 97 06/23/24 09:04 98.4 F 9 L 20 123/60 97 Intake and Output 06/22/24 06/23/24 06/23/24 22:59 06:59 14:59 Other: Weight 61.235 kg The patient appeared well nourished and normally developed. Vital signs as documented. Head exam is unremarkable. No scleral icterus or corneal arcus noted. Neck is without jugular venous distension, thyromegaly, or carotid bruits. Carotid upstrokes are brisk bilaterally. Lungs are clear to auscultation and percussion. Cardiac exam reveals the PMI to be normally sized and situated. Rhythm is regular. First and second heart sounds normal. No murmurs, rubs or gallops. Abdominal exam reveals normal bowel sounds, no masses, no organomegaly and no aortic enlargement. Extremities are nonedematous and both femoral and pedal pulses are normal. Examination of the skin revealed no evidence of significant rashes, suspicious appearing nevi or other concerning lesions. Neurologically, the patient is awake and alert and the patient does not have any focal neurological deficit. Cranial nerves are essentially intact. Results - Laboratory Findings CBC and BMP: 06/23/24 09:37 06/23/24 09:37 PT/INR, D-dimer PT 10.3 sec (10.0-12.5) 06/23/24 09:37 INR 0.9 (<1.2) 06/23/24 09:37 Abnormal lab findings: Abnormal Labs 06/23/24 06/23/24 09:37 09:37 Plt Count 537 H Lymphocytes # 0.5 L BUN 19 H Glucose 103 H AST 526 H ALT 403 H Alkaline Phosphatase 212 H - Diagnostic Findings CT scan - chest: image reviewed Assessment and Plan Plan: Acute provoked left pulmonary embolism following her knee surgery, with very small subsegmental pulmonary embolism involving the left lung and negative DVTs. Patient is currently subjected to the anticoagulation patient is currently on IV heparin. No previous history of DVT or pulmonary embolism. No other provoking factors. Transaminitis, rule out hepatobiliary disease, normal baseline coagulation profile. Hepatic hemangioma Hepatocellular disease Osteoarthritis status post left total knee replacement procedure 3 weeks prior to hospitalization Plan Will need a workup regarding the abnormal LFTs including hepatitis profile for viral agents in addition to other chronic conditions such as autoimmune hepatitis Continue IV heparin and transition the patient to anticoagulation with Eliquis Recommend coagulation for around 3 to 6 months for provoked pulmonary embolism Echocardiogram Will follow
--- NOTE | 2024-06-23 15:24 | CA ---
Transthoracic Echo Report Name: Margaret Vera Age: 69 Gender: F : 1955 Exam Date: 06/23/2024 14:07 Exam Location: [place] [facility] Ht (in): 63 Wt (lb): 135 Ordering Physician: Miah Patten MD Attending/Referring Phys: [id number], Earline Hard Hat Diver Sadaf Ackerman RDCS Procedure CPT: Indications: Chest Pain Cardiac Hx: Technical Quality: Fair Contrast 1: Total Dose (mL): Contrast 2: Total Dose (mL): MEASUREMENTS (Male / Female) Normal Values 2D ECHO LV Diastolic Diameter PLAX 4.6 cm 4.2 - 5.9 / 3.9 - 5.3 cm LV Systolic Diameter PLAX 3.1 cm IVS Diastolic Thickness 0.7 cm 0.6 - 1.0 / 0.6 - 0.9 cm LVPW Diastolic Thickness 0.9 cm 0.6 - 1.0 / 0.6 - 0.9 cm LV Relative Wall Thickness 0.4 LVOT Diameter 2.0 cm LV Diastolic Volume MOD BP 87.8 cm??? 67 - 155 / 56 - 104 cm??? LV Systolic Volume MOD BP 29.3 cm??? 22 - 58 / 19 - 49 cm??? LV Ejection Fraction MOD BP 66.6 % >= 55 % LV Cardiac Index MOD BP 2572.3 cm???/min???m??? LV Diastolic Volume MOD 4C 79.0 cm??? LV Systolic Volume MOD 4C 28.3 cm??? LV Ejection Fraction MOD 4C 64.1 % LV Cardiac Index MOD 4C 2228.1 cm???/min???m??? LV Diastolic Length 4C 7.2 cm LV Systolic Length 4C 5.4 cm LV Diastolic Volume MOD 2C 85.6 cm??? LV Systolic Volume MOD 2C 27.9 cm??? LV Ejection Fraction MOD 2C 67.4 % LV Cardiac Index MOD 2C 2540.3 cm???/min???m??? LV Diastolic Length 2C 8.2 cm LV Systolic Length 2C 5.9 cm LA Volume 26.0 cm??? 18 - 58 / 22 - 52 cm??? LA Volume Index 15.7 cm???/m??? 16 - 28 cm???/m??? Ascending Aorta Diameter 2.9 cm DOPPLER AV Peak Velocity 143.4 cm/s AV Peak Gradient 8.2 mmHg AV Mean Velocity 96.1 cm/s AV Mean Gradient 4.2 mmHg AV Velocity Time Integral 26.0 cm LVOT Peak Velocity 100.6 cm/s LVOT Peak Gradient 4.0 mmHg LVOT Velocity Time Integral 19.9 cm LVOT Stroke Volume 62.8 cm??? LVOT Stroke Volume Index 38.4 ml/m??? LVOT Cardiac Index 2763.6 cm???/min???m??? AV Area Cont Eq vti 2.4 cm??? AV Area Cont Eq pk 2.2 cm??? MV Area PHT 3.4 cm??? Mitral E Point Velocity 47.5 cm/s Mitral A Point Velocity 60.9 cm/s Mitral E to A Ratio 0.8 MV Deceleration Time 223.5 ms PV Peak Velocity 81.8 cm/s PV Peak Gradient 2.7 mmHg FINDINGS Left Ventricle Left ventricular ejection fraction is estimated at 60-65 %. Left ventricular cavity size normal. Left ventricular wall thickness normal. No obvious regional wall motion abnormalities. Right Ventricle Normal right ventricular size and function. Unable to estimate the right ventricular systolic pressure. Right Atrium Normal right atrial size. Left Atrium Normal left atrial size. Mitral Valve Structurally normal mitral valve. No mitral stenosis, regurgitation or prolapse. Aortic Valve Trileaflet aortic valve. No aortic valve stenosis or regurgitation. Tricuspid Valve Structurally normal tricuspid valve. No tricuspid stenosis, regurgitation or prolapse. Pulmonic Valve Pulmonic valve not well visualized. No pulmonic stenosis. No pulmonic regurgitation. Pericardium No pericardial effusion. Aorta Normal size aortic root and proximal ascending aorta. CONCLUSIONS Left ventricular ejection fraction 60-65% No mitral regurgitation No tricuspid regurgitation No pericardial effusion Previewed by: Dr. Jonathan Mcclure DO (Electronically Signed) Final Date: 23 June 2024 15:23
[2024-06-23] MEDS: ACETAMINOPHEN TAB 325 MG TAB PO PRN (16:40)
[2024-06-23] MEDS: traMADol 50 MG TAB PO PRN (18:32)
[2024-06-23] MEDS: HYDROmorphone 0.5 MG/0.5 ML SYRINGE IVP PRN (22:04)
[2024-06-24 03:25] LABS: Hepatitis A Antibody IgM Nonreactive (Nonreactive); Hepatitis B Core IgM Nonreactive (Nonreactive); Hepatitis B Surface Antigen Nonreactive (Nonreactive); Hepatitis C IgG Antibody Nonreactive (Nonreactive)
[2024-06-24] MEDS ORDERED: HYDROcodone/APAP 5-325MG 1 EACH TAB PO PRN (06:35)
[2024-06-24 08:00] LABS: Basophils % (A) 1 %; Eosinophils # (A) 0.6 k/uL (0-0.7); Eosinophils % (A) 12 %; HCT 39.9 % (34.0-46.0); Lymphocytes % (A) 20 %; MCH 30.2 pg (25.0-35.0); MCHC 32.7 g/dL (31.0-37.0); MCV 92.3 fL (80.0-100.0); Mean Platelet Volume 8.4; Monocytes # (A) 0.2 k/uL (0-1.0); Monocytes % (A) 5 %; Neutrophils # (A) 2.9 k/uL (1.3-7.7); Neutrophils % (A) 59 %; Platelet Count 606 k/uL (150-450); RBC 4.32 m/uL (3.80-5.40); RDW 13.8 % (11.5-15.5); WBC 4.9 k/uL (3.8-10.6)
[2024-06-24 08:02] LABS: ALT 685 U/L (4-34); AST 601 U/L (14-36); African American GFR (CKD) >90 (>60 ml/min/1.73 sqM); Albumin 4.2 g/dL (3.5-5.0); Alkaline Phosphatase 364 U/L (38-126); Anion Gap 9 mmol/L; Bilirubin, Delta 0.3 mg/dL (0.0-0.2); Bilirubin,Unconjugated 0.2 mg/dL (0.0-1.1); Blood Urea Nitrogen 13 mg/dL (7-17); Calcium 9.9 mg/dL (8.4-10.2); Carbon Dioxide 28 mmol/L (22-30); Chloride 102 mmol/L (98-107); Glucose 102 mg/dL (74-99); Non-African American GFR(CKD) >90 (>60 ml/min/1.73 sqM); Potassium 4.1 mmol/L (3.5-5.1); Sodium 139 mmol/L (137-145); Total Bilirubin 0.5 mg/dL (0.2-1.3); Total Protein 7.6 g/dL (6.3-8.2)
[2024-06-24 08:25] VITALS: RESP 17
--- NOTE | 2024-06-24 14:50 | P.PN ---
Subjective Progress Note Date: 06/24/24 This is a 69-year-old female patient who is coming in for left-sided chest wall pain. The patient has undergone a recent left knee replacement and this was done approximately 3 weeks ago. She was given aspirin for DVT prophylaxis postop. The patient has chest wall pain on the left. No hemoptysis. No pleurisy. No shortness of breath. No swelling lower extremities. Surgical wound site is dry clean and intact. No previous history of DVT or pulmonary embolism. In the emergency, CT of the chest showed subsegmental pulm embolism in the left midlung area. CBC and electrolytes were essentially within normal limits. The patient had Doppler of the lower extremity was negative and based on that the patient was done on IV heparin. No evidence of any RV strain pattern on the CAT scan findings. LFTs were abnormal. Does not take aspirin. Does not take any other hepatotoxic agents and the patient does not drink alcohol. Ultrasound the gallbladder was done and it showed multiple hyperechoic areas in the liver comparable to a previous ultrasound (08/29/2020 and there is worsening creatinine and liver associate with underlying hepatocellular disease. Gallbladder is within normal limits., Bile duct is not elevated. Her ALT is 403, AST is 526, troponins are negative, bilirubin is not elevated, alkaline phosphatase 212. The viral screen has been negative On 06/24/2024, the patient is being seen for a follow-up. The patient has a questionable tiny subsegmental pulmonary embolism/filling defect on the left. Doppler of the lower extremity was negative and the patient remains on IV heparin suspecting an acute pulmonary embolism. No chest pain. No shortness of breath. She is having fullness and discomfort in the epigastric area and the patient's LFTs remain quite elevated in fact LFTs are slightly worse compared to yesterday. Hepatitis profile has been negative. The patient has been taking a total of 3 g of acetaminophen in an outpatient basis following her surgery. T roponins have been negative. AST is 61, ALT 685 and alkaline phosphatase is 364. On a separate note, the patient has been utilizing weed killer, round up on outpatient basis prior to her hospital admission. Objective - Vital Signs Vital signs: Vital Signs Temp 98.5 F 06/24/24 11:27 Pulse 75 06/24/24 11:27 Resp 17 06/24/24 11:27 BP 153/79 06/24/24 11:27 Pulse Ox 98 06/24/24 11:27 FiO2 Intake & Output 06/23/24 06/24/24 06/24/24 18:59 06:59 18:59 Intake Total 540 832.748 Balance 540 832.748 Weight 61.235 kg 62.3 kg Intake: Intake, IV Titration 232.748 Amount Heparin Sod,Pork in 0.45% 232.748 NaCl 25,000 unit In 0.45 % NaCl 1 250ml.bag @ 18 UNITS/KG/HR 11.022 mls/hr IV .[id number] [facility] Rx#: [id number] Oral 540 600 Other: Voiding Method Toilet Toilet # Voids 1 1 - Exam The patient appeared well nourished and normally developed. Vital signs as documented. Head exam is unremarkable. No scleral icterus or corneal arcus noted. Neck is without jugular venous distension, thyromegaly, or carotid bruits. Carotid upstrokes are brisk bilaterally. Lungs are clear to auscultation and percussion. Cardiac exam reveals the PMI to be normally sized and situated. Rhythm is regular. First and second heart sounds normal. No murmurs, rubs or gallops. Abdominal exam reveals normal bowel sounds, no masses, no organomegaly and no aortic enlargement. Extremities are nonedematous and both femoral and pedal pulses are normal. Examination of the skin revealed no evidence of significant rashes, suspicious appearing nevi or other concerning lesions. Neurologically, the patient is awake and alert and the patient does not have any focal neurological deficit. Cranial nerves are essentially intact. - Labs CBC & Chem 7: 06/24/24 06:51 06/24/24 06:51 Labs: Abnormal Lab Results - Last 24 Hours (Table) 06/23/24 06/24/24 06/24/24 Range/Units 16:45 06:51 06:51 Plt Count 606 H (150-450) k/uL APTT 60.5 H (22.0-30.0) sec Glucose 102 H (74-99) mg/dL Delta Bilirubin 0.3 H (0.0-0.2) mg/dL AST 601 H (14-36) U/L ALT 685 H (4-34) U/L Alkaline Phosphatase 364 H (38-126) U/L 06/24/24 Range/Units 06:51 Plt Count (150-450) k/uL APTT 57.5 H (22.0-30.0) sec Glucose (74-99) mg/dL Delta Bilirubin (0.0-0.2) mg/dL AST (14-36) U/L ALT (4-34) U/L Alkaline Phosphatase (38-126) U/L Assessment and Plan Plan: Acute provoked left pulmonary embolism following her knee surgery, with very small subsegmental pulmonary embolism involving the left lung and negative DVTs. Patient is currently subjected to the anticoagulation patient is currently on IV heparin. No previous history of DVT or pulmonary embolism. No other provoking factors. Transaminitis, rule out hepatobiliary disease, normal baseline coagulation profile. Hepatic hemangioma Hepatocellular disease with abnormal LFTs and rise in the LFT profile compared to yesterday. Negative hepatitis profile. Osteoarthritis status post left total knee replacement procedure 3 weeks prior to hospitalization Plan Will need a workup regarding the abnormal LFTs including hepatitis profile for viral agents in addition to other chronic conditions such as autoimmune hepatitis It is also possible that the patient was exposed to [place], while keeping some weeds at home and this may be a chemical toxicity/hepatotoxicity from this agent. Monitor LFTs Consider a hepatology evaluation especially if the LFTs continue to rise Recommend coagulation for around 3 months although not absolutely convinced that this is a true pulmonary embolism. There is filling defect cannot be adequately visualized. Please refer to the radiology report. Echocardiogram Will follow
[2024-06-24 17:01] VITALS: BP 166/65; PULSE 66; TEMP 97.8
[2024-06-24] MEDS: ONDANSETRON 4 MG/2 ML VIAL IVP PRN (17:31)
--- NOTE | 2024-06-24 20:28 | P.DS ---
Providers Date of admission: 06/23/24 11:32 Attending physician: Miah Patten MD Consults: 06/23/24 11:25 Consult Physician Routine Consulting Provider: Pameal Cordon Consult Reason/Comments: acute pe Do you want consulting provider notified?: Yes Primary care physician: Valentina Joshi Hospital Course: Diagnoses: Worsening hepatitis/transaminitis, of uncertain etiology, associated with symptoms of abdominal pain Acute provoked left pulmonary embolism following her knee surgery, mild Osteoarthritis status post left total knee replacement procedure 3 weeks prior to hospitalization Hospital course: This is a pleasant 69 years old female with past medical history of multiple medical problems Presents today with chest pain or dyspnea. Patient states that she has left knee surgery for replacement of the joint about 3 weeks ago, she was doing well and participating in therapy and walking fine 2 days ago she was started feeling not good, she started then developing what she describes lower central chest pain, nonradiating getting gradually worse especially yesterday Sunday she could not sleep, she walked her asking to come to emergency room. Associated with little dyspnea but no coughing On admission patient underwent CTA which showed right midlung pulmonary embolism, patient was started on heparin drip and pulmonary consult was obtained, this is a small embolism and it looks like incidental findings And patient's symptoms present on admission was actually gross more towards the epigastric area rather than lower chest. The pain itself looks like dull not sharp, the pain described the patient is not affected by coughing or worsened by deep inspiration which makes PE unlikely as the cause of her pain. Also does not follow anatomical as the PE is higher at the right side. Last night she had a rough night and requested IV pain medication as she described however this morning she feels more comfortable. She has some mild tenderness in the epigastric area. On admission her liver enzymes noticed to be high, workup including hepatitis panel which was unremarkable Ultrasound of the liver showed multifocal hypoechoic lesion suspicious for hemangioma. Associated with gross burden of the liver apparently may have suspicious for hepatobiliary disease. With her symptoms we will check her liver enzymes today and show significant worsening with AST 526 up to 601 and ALT increased 403 up to 685. Bilirubin is normal Pulmonary service on evaluated the patient also recommended hematology evaluation and further workup. Because there is no GI service in this facility the whole week. I discussed the case with the patient with recommendation for higher level of care, she agrees and she wants to be transferred to [place]. I called the transfer team and they kindly accepted the patient and she is going to be transferred in a stable medical condition but guarded prognosis. Physical exam Gen: patient is a AAOx3, no distress CVS: S1-S2, RRR, no murmur Lungs: B/L CTA, no wheezing -Abdomen: soft, no distention, mild epigastric tenderness, with no guarding or rebound tenderness positive bowel sounds Extremity: no leg edema or induration Time spent more than 35 minutes Patient Condition at Discharge: Stable Plan - Discharge Summary Discharge Rx Participant: No New Discharge Prescriptions: No Action Zinc Gluconate [Zinc] 50 mg PO DAILY Calcium Carbonate [Tums] 1,000 mg PO DAILY Acetaminophen [Tylenol] 975 mg PO Q4H PRN PRN Reason: Pain Ibuprofen [Motrin] 800 mg PO Q8H PRN PRN Reason: Pain Cetirizine HCl [Zyrtec] 10 mg PO DAILY traMADol HCL 50 mg PO BID PRN PRN Reason: Pain diphenhydrAMINE HCL [Benadryl] 50 mg PO HS Aspirin EC [Ecotrin Low Dose] 81 mg PO BID Discharge Medication List Acetaminophen [Tylenol] 975 mg PO Q4H PRN 06/23/24 [History] Aspirin EC [Ecotrin Low Dose] 81 mg PO BID 06/23/24 [History] Calcium Carbonate [Tums] 1,000 mg PO DAILY 06/23/24 [History] Cetirizine HCl [Zyrtec] 10 mg PO DAILY 06/23/24 [History] Ibuprofen [Motrin] 800 mg PO Q8H PRN 06/23/24 [History] Zinc Gluconate [Zinc] 50 mg PO DAILY 06/23/24 [History] diphenhydrAMINE HCL [Benadryl] 50 mg PO HS 06/23/24 [History] traMADol HCL 50 mg PO BID PRN 06/23/24 [History] Follow up Appointment(s)/Referral(s): Valentina Joshi MD [Primary Care Provider] - 1-2 days Discharge Disposition: [facility]
== END 2024-06-24 19:17 ==
LOC: EC 09:03 → 3SCARD 11:32 → INTOOBSV 11:32 → 3SCARD 14:44 → UNDODISIN 06-24 19:17
PROVIDERS: ADMIT Internal Medicine; ATTEND Internal Medicine
DX: I26.99 Other pulmonary embolism without acute cor pulmonale (principal); K75.9 Inflammatory liver disease, unspecified; Z96.652 Presence of left artificial knee joint; Z98.890 Other specified postprocedural states
CPT/HCPCS: 96366 ×3; 96375 ×2; 96365; 99291; 36415; 93005; 93306; 80053; 80048; 80076; 80074; 83690; 83735; 84484; 85025 ×2; 85610; 85730 ×2; 80143; 87636; 76705; 93970; 71275; G0378 ×2; J2405; J1644 ×3; J1171; Q9967

== ENCOUNTER → 2024-09-24 | Outpatient (CLI) | payer MEDICARE ==
[2024-09-24 12:45] LABS: African American GFR (CKD) >90 (>60 ml/min/1.73 sqM); Blood Urea Nitrogen 21 mg/dL (7-17); Non-African American GFR(CKD) 79 (>60 ml/min/1.73 sqM)
--- NOTE | 2024-09-24 13:55 | CT ---
EXAMINATION TYPE: CT angio chest DATE OF EXAM: 09/24/2024 COMPARISON: 06/23/2024 CLINICAL INDICATION: Female, 69 years old with history of R06.02 SOB Z86.711 HX PULMONARY EMBOLISM; P HH, TECHNIQUE: CTA scan of the thorax is performed , following the uneventful administration nonionic IV contrast. E xam was performed according to the department, pulmonary embolism protocol. MIP images are created a nd reviewed. 3-D post processing was performed CT DLP: mGycm CT CTDI: mGy Automated exposure control for dose reduction was used. FINDINGS: LUNGS: The lungs are grossly clear, there is no concerning parenchymal mass or nodule identified. T here is no pleural effusion or pneumothorax seen. The tracheobronchial tree is patent. There are sta ble mild pleural-parenchymal scarring in the apices. There are a few scattered stable micronodules. MEDIASTINUM: There is satisfactory enhancement of the pulmonary artery and its branches, there is no CT evidence for pulmonary embolism. There are no greater than 1 cm hilar or mediastinal lymph nodes. No pericardial effusion is seen. OTHER: No additional significant abnormality is seen. IMPRESSION: 1. NO PULMONARY EMBOLISM. 2. NO ACUTE CARDIOPULMONARY DISEASE. 3. FEW MEGHANN SCATTERED MICRONODULES. [facility], Workstation: DI, 09/24/2024 1:52 PM
== END | disposition home or self-care (01) ==
LOC: RADCTMAIN 12:09
PROVIDERS: ATTEND Internal Medicine
DX: R06.02 Shortness of breath (principal); Z86.711 Personal history of pulmonary embolism
CPT/HCPCS: 82565; 84520; 71275; 36415; Q9967